=== PATIENT | female | born 1955 ===

== ENCOUNTER 2024-12-25 07:15 | Inpatient (IN) | payer OTHER ==
[~2024-12-25] VITALS: Ht 167.6 cm; Wt 80.3 kg
[~2024-12-25 07:15] MED LIST: NABUMETONE500 MG PO; PERCOCET 5/3251 TAB PO
[2024-12-25 08:19] LABS: URINE APPEARANCE Clear; URINE BILIRRUBIN Negative (NEGATIVE); URINE BLOOD Negative; URINE COLOR Yellow; URINE GLUCOSE Negative (NEGATIVE); URINE KETONE Negative (NEGATIVE); URINE LEUKOCYTE Small; URINE NITRATE Negative; URINE PROTEIN Negative (NEGATIVE); URINE UROBILINOGEN 0.2 E.U./dl
[2024-12-25 08:20] LABS: BASO % 0.6 % (0.1-1.2); EOS # 0.21 (0.04-0.54); EOS % 3.9 % (0.7-7.0); LYMPH # 1.74 (1.18-3.74); LYMPH % 32.7 % (19.3-53.1); MEAN PLATELET VOLUME 10.20 fl (9.4-12.4); MONO # 0.56 (0.24-0.82); MONO % 10.5 % (4.7-12.5); NEUT # 2.76 (1.56-6.13); NEUT % 51.9 % (34.0-71.1); RED CELL DISTRIBUTION WIDTH 13.2 % (11.6-14.4)
[2024-12-25 08:23] LABS: URINE BACTERIA 55.1 uL (0.0-1933); URINE EPITHELIAL CELLS 5.6 uL (0.0-38.8); URINE WBC 6.3 uL (0.0-23.2)
[2024-12-25 08:28] LABS: URINE CAST 0.73 uL (0.0-1.40); URINE RBC 1.7 uL (0.0-20.8)
[2024-12-25 08:52] LABS: INR 0.99
[2024-12-25] MEDS ORDERED: ATACAND32 MG PO (09:06)
[2024-12-25] MEDS ORDERED: ATORVASTATIN CA10 MG PO (09:06)
[2024-12-25] MEDS ORDERED: LOVAZA1 GM (09:06)
[2024-12-25] MEDS ORDERED: PROTONIX20 MG PO (09:07)
[2024-12-25] MEDS ORDERED: NEURONTIN300 MG (09:07)
[2024-12-25 09:09] LABS: ALT/SGPT 37.0 U/L (12-78); AST/SGOT 19.0 U/L (15-37); BILIRUBIN TOTAL 0.56 mg/dL (0.3-1.2); BUN CREA RATIO 23.0 (7.0-25.0); CREATININE SERUM 0.8 mg/dL (0.55-1.02); GFR 70.91; GLOBULINA 3.1 G/DL (2.4-3.5); GLUCOSE FASTING 99.0 mg/dL (65-100); OSMOLALITY SERUM 289.0 MOSM/KG (275-295)
[2024-12-25 09:11] VITALS: BP 147/79
[2025-01-01] MEDS ORDERED: VANCOMYCIN HCL 1,000 MG VIAL IR ONE (07:00)
[2025-01-01] MEDS ORDERED: KETOROLAC TROMETHAMINE 60 MG VIAL IM ONE (07:00)
[2025-01-01] MEDS ORDERED: TRANEXAMIC ACID 100MG/1ML (1000MG) AMPUL IV ONE ×2 (07:00)
[2025-01-01] MEDS ORDERED: BUPIVACAINE HCL 30 ML VIAL IJ ONE (07:00)
[2025-01-01] MEDS ORDERED: LIDOCAINE HCL 1%/EPINEPHRINE 20ML VIAL IJ ONE (07:00)
[2025-01-01] MEDS ORDERED: CEFAZOLIN SODIUM 1,000 MG VIAL IV ONE (07:00)
[2025-01-01] MEDS ORDERED: MORPHINE SULFATE 4 MG/ML VIAL IV ONE ×3 (07:00→12:30)
[2025-01-01] MEDS ORDERED: ISOPROPYL ALCOHOL 30 ML OUNCE TOP ONE (07:00)
[2025-01-01] MEDS ORDERED: ONDANSETRON HCL 2 MG/ML VIAL IV PRN (09:30)
[2025-01-01] MEDS ORDERED: ONDANSETRON HCL 2 MG/ML VIAL IV ONE (10:05)
[2025-01-01] MEDS ORDERED: CEFAZOLIN SODIUM 1,000 MG VIAL IV SCH (12:00)
[2025-01-01] MEDS ORDERED: MORPHINE SULFATE 4 MG/ML CARTRIDGE IV SCH (12:00)
[2025-01-01 13:31] VITALS: BP 138/81; O2SAT 99
[2025-01-01 17:20] VITALS: BP 151/78; O2SAT 98
[2025-01-01] MEDS ORDERED: GABAPENTIN 100 MG CAPSULE PO SCH (21:00)
[2025-01-01] MEDS ORDERED: ORPHENADRINE CITRATE 100 MG TABLET PO SCH (21:00)
[2025-01-02 00:53] VITALS: BP 135/78; O2SAT 100
[2025-01-02 06:56] LABS: BASO % 0.1 % (0.1-1.2); EOS # 0.01 (0.04-0.54); EOS % 0.1 % (0.7-7.0); LYMPH # 1.18 (1.18-3.74); LYMPH % 9.8 % (19.3-53.1); MEAN PLATELET VOLUME 11.20 fl (9.4-12.4); MONO # 1.17 (0.24-0.82); MONO % 9.7 % (4.7-12.5); NEUT # 9.65 (1.56-6.13); NEUT % 79.9 % (34.0-71.1); RED CELL DISTRIBUTION WIDTH 13.2 % (11.6-14.4)
[2025-01-02] MEDS ORDERED: RIVAROXABAN 10 MG TAB PO SCH (09:00)
[2025-01-02] MEDS ORDERED: MORPHINE SULFATE 4 MG/ML CARTRIDGE IV SCH (09:00)
[2025-01-02] MEDS ORDERED: CANDESARTAN CILEXETIL 32 MG TABLET PO SCH (09:00)
[2025-01-02 12:04] LABS: COVID-19 AG NEGATIVE (NEGATIVE)
[2025-01-02 12:40] VITALS: BP 179/75; O2SAT 98
[2025-01-02 16:00] VITALS: BP 159/57; O2SAT 96
[2025-01-02] MEDS ORDERED: IRON FUM,PS/FOLIC ACID/VITC/B3 1 CAP CAPSULE PO SCH (17:00)
[2025-01-02] MEDS ORDERED: Cyanocobalamin/Mecobalamin 1 TAB.SL SL SCH (17:00)
[2025-01-03 03:04] VITALS: BP 137/81; O2SAT 96
[2025-01-03 06:19] LABS: BASO % 0.2 % (0.1-1.2); EOS # 0.07 (0.04-0.54); EOS % 0.5 % (0.7-7.0); LYMPH # 1.29 (1.18-3.74); LYMPH % 9.3 % (19.3-53.1); MEAN PLATELET VOLUME 10.90 fl (9.4-12.4); MONO # 1.35 (0.24-0.82); MONO % 9.8 % (4.7-12.5); NEUT # 11.04 (1.56-6.13); NEUT % 79.8 % (34.0-71.1); RED CELL DISTRIBUTION WIDTH 13.3 % (11.6-14.4)
[2025-01-03 08:53] VITALS: BP 135/95; O2SAT 98
[2025-01-03] MEDS ORDERED: NORFLEX100MG PO (11:01)
[2025-01-03] MEDS ORDERED: GABAPENTIN100 MG PO (11:01)
[2025-01-03] MEDS ORDERED: XARELTO10 MG PO (11:02)
[2025-01-03] MEDS ORDERED: PERCOCET 5-3251 EACH PO (11:02)
== END 2025-01-03 15:47 | disposition home or self-care (01) | DRG 470 ==
LOC: O/R 01-01 06:00 → SURH 01-01 07:00 → SURG 01-01 12:10
PROVIDERS: ADMIT Orthopaedic Surgery; ATTEND Orthopaedic Surgery
PROC: 0SRD0JZ Replacement of Left Knee Joint with Synthetic Substitute, Open Approach (ICD-10-PCS; principal; 2025-01-01 07:00)
DX: M17.12 Unilateral primary osteoarthritis, left knee (principal); D62 Acute posthemorrhagic anemia; I10 Essential (primary) hypertension; M85.662 Other cyst of bone, left lower leg